=== PATIENT | male | born 1965 | race Caucasian/White ===

== ENCOUNTER → 2019-09-08 | Outpatient (CLI) | payer MEDICARE ==
--- NOTE | 2019-09-08 14:40 | REP ---
Clinical: Chest pain . Comparison: None . Technique: PA and lateral. Findings: The mediastinum and cardiac silhouette are normal. The lung ruvalcaba are clear and without acute consolidation, effusion, or pneumothorax. Small focus of linear plate-like atelectasis / scarring along the periphery of the left mid lung zone. The skeletal structures are intact and normal. Impression: 1. No significant acute process. Electronically Signed by Patrice Saavedra MD 09/08/2019 02:31 P
== END ==
LOC: M WUC 14:17
PROVIDERS: ATTEND Internal Medicine
DX: R07.89 Other chest pain (principal)

== ENCOUNTER 2020-06-22 14:18 | Emergency (ER) | payer MEDICARE, OTHER ==
[~2020-06-22] VITALS: Ht 175.3 cm; Wt 145.9 kg
[2020-06-22] MEDS ORDERED: FLUO20CA22 (14:31)
[2020-06-22] MEDS ORDERED: OMEP-221 (14:31)
[2020-06-22] MEDS ORDERED: LAMO50TA (14:31)
[2020-06-22] MEDS ORDERED: METO1TAB32 (14:31)
[2020-06-22] MEDS ORDERED: METF10004 (14:31)
[2020-06-22] MEDS ORDERED: LEVO25TA5 (14:31)
[2020-06-22] MEDS ORDERED: TRAZ1TAB14 (14:31)
[2020-06-22] MEDS ORDERED: ATOM40CA9 (14:31)
[2020-06-22] MEDS ORDERED: FENO160T10 (14:31)
[2020-06-22] MEDS ORDERED: MONT10TA4 (14:31)
[2020-06-22] MEDS ORDERED: AMLO1TAB25 (14:31)
[2020-06-22] MEDS ORDERED: SIMV20TA22 (14:31)
[2020-06-22] MEDS ORDERED: COLE625TAB (14:31)
[2020-06-22] MEDS ORDERED: GLIP5TAB20 (14:31)
[2020-06-22] MEDS ORDERED: DESV50TA3 (14:31)
[2020-06-22] MEDS ORDERED: ALBU8.5H (14:31)
[2020-06-22] MEDS ORDERED: ONDANSETRON 4MG/2ML VIAL IV ONE ×2 (15:30→18:00)
[2020-06-22] MEDS ORDERED: KETOROLAC 30 MG/ML 1ML VIAL IV ONE (15:30)
[2020-06-22] MEDS ORDERED: NS 1,000 ML IV ONE (15:30)
[2020-06-22 15:36] LABS: BASO % 0.4 % (0.0-1.0); EOS % 0.4 % (0.0-3.0); HEMATOCRIT 48.7 % (42.0-52.0); HEMOGLOBIN 15.7 g/dl (13.5-17.5); LYMPH # 1.2 10^3/uL (1.5-5.0); LYMPH % 10.8 % (24.0-44.0); MEAN CORPUSCULAR HEMOGLOBIN 26.9 pg (27.0-33.0); MEAN CORPUSCULAR HGB CONC 32.2 g/dl (32.0-36.5); MEAN CORPUSCULAR VOLUME 83.5 fl (80.0-96.0); MONO # 0.7 10^3/uL (0.0-0.8); MONO % 6.5 % (0.0-5.0); NEUTROPHILS % 81.5 % (36.0-66.0); PLATELET COUNT, AUTOMATED 219 10^3/uL (150-450); RED BLOOD COUNT 5.83 10^6/uL (4.30-6.10)
[2020-06-22] MEDS ORDERED: ISOVUE-370 76% 100ML VIAL As Ordered ONE (15:51)
[2020-06-22 16:09] LABS: ALBUMIN 4.1 GM/DL (3.2-5.2); ALT/SGPT 97 U/L (12-78); BILIRUBIN,DIRECT 0.2 MG/DL (0.0-0.2); BILIRUBIN,TOTAL 0.5 MG/DL (0.2-1.0); CK-MB VALUE MASS 1.3 NG/ML (<3.6); CPK CREATINE PHOSPHOKINASE 204 U/L (39-308); LIPASE 157 U/L (73-393); MB/CK RELATIVE INDEX 0.64 (< OR =4); TOTAL PROTEIN 8.3 GM/DL (6.4-8.2); TROPONIN I < 0.02 NG/ML (< 0.10)
--- NOTE | 2020-06-22 16:53 | REPVR ---
PROCEDURE INFORMATION: Exam: CT Abdomen And Pelvis With Contrast Exam date and time: 06/22/2020 4:09 PM Age: 55 years old Clinical indication: Abdominal pain; Localized; Left lower quadrant (llq); Additional info: Llq abd pain TECHNIQUE: Imaging protocol: Computed tomography of the abdomen and pelvis with intravenous contrast. Radiation optimization: All CT scans at this facility use at least one of these dose optimization techniques: automated exposure control; mA and/or kV adjustment per patient size (includes targeted exams where dose is matched to clinical indication); or iterative reconstruction. Contrast material: ISOVUE 370; Contrast volume: 100 ml; Contrast route: INTRAVENOUS (IV); COMPARISON: No relevant prior studies available. FINDINGS: Liver: Moderate diffuse fatty infiltration of the liver is present. There are hypodense masses present in the right lobe of the liver, with the largest measuring 6.2 cm in maximum craniocaudal diameter on image 85 of series 202. These have benign features with well-defined aguilar and internal homogeneous low attenuation density of less than 20 Hounsfield units and are likely small simple cysts or hemangiomas. Gallbladder and bile ducts: Prior cholecystectomy. The biliary ducts are normal in size. Pancreas: Normal. No ductal dilation. Spleen: Normal. No splenomegaly. Adrenals: Normal. No mass. Kidneys and ureters: Normal. No hydronephrosis. Stomach and bowel: No obvious cause for the patient's left lower quadrant pain identified. Minimal distal descending and proximal sigmoid colonic diverticulosis is present, with no evidence of acute diverticulitis. Appendix: No evidence of appendicitis. Intraperitoneal space: Unremarkable. No free air. No significant fluid collection. Vasculature: Unremarkable. No abdominal aortic aneurysm. Lymph nodes: Unremarkable. No enlarged lymph nodes. Bladder: Unremarkable as visualized. Reproductive: Unremarkable as visualized. Bones/joints: A chronic-appearing anterior wedge compression fracture of the superior vertebral body endplate of T11 is present, with anterior height loss of approximately 40%. This causes accentuation of the normal thoracolumbar spine kyphotic curvature. Soft tissues: Post laparotomy surgical changes are seen in the anterior abdominal wall. IMPRESSION: 1. Moderate diffuse fatty infiltration of the liver is present. 2. There are hypodense masses present in the right lobe of the liver, with the largest measuring 6.2 cm in maximum craniocaudal diameter on image 85 of series 202. These have benign features with well-defined aguilar and internal homogeneous low attenuation density of less than 20 Hounsfield units and are likely small simple cysts or hemangiomas. No further follow-up is recommended. Reference: Managing Incidental Findings on Abdominal CT: White Paper of the ACR Incidental Findings Committee Alex Lindquist MD, et al. JACR, July 2010. 3. Prior cholecystectomy. The biliary ducts are normal in size. 4. Post laparotomy surgical changes are seen in the anterior abdominal wall. 5. No obvious cause for the patient's left lower quadrant pain identified. Minimal distal descending and proximal sigmoid colonic diverticulosis is present, with no evidence of acute diverticulitis. 6. A chronic-appearing anterior wedge compression fracture of the superior vertebral body endplate of T11 is present, with anterior height loss of approximately 40%. This causes accentuation of the normal thoracolumbar spine kyphotic curvature. Electronically signed by: Ricky Recio On 06/22/2020 16:53:33 PM
[2020-06-22] MEDS ORDERED: MORPHINE 4 MG/ML 1ML VIAL/SYRINGE (J2270) IV ONE (18:00)
[2020-06-22] MEDS ORDERED: CLOTCRE3 TOP (19:40)
[2020-06-22 19:46] VITALS: BP 125/95
--- NOTE | 2020-06-24 08:52 | ED PDOC ---
Post-Departure Follow-Up certified letter sent regarding radiology Pam Zabala MD Jun 24, 2020 08:52
[2020-06-24 17:07] LABS: Lyme Disease IgG/IgM Antibodie <0.91 ISR (0.00-0.90); Lyme Disease IgM Ab Quantitati <0.80 index (0.00-0.79)
--- NOTE | 2020-06-25 11:20 | ECGEPIP ---
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
== END 2020-06-22 20:16 | disposition home or self-care (01) ==
LOC: M ED 14:18
DX: R74.0 Nonspecific elevation of levels of transaminase and lactic acid dehydrogenase [LDH] (principal); R19.7 Diarrhea, unspecified; R11.0 Nausea; S22.080A Wedge compression fracture of T11-T12 vertebra, initial encounter for closed fracture; X58.XXXA Exposure to other specified factors, initial encounter; Y92.9 Unspecified place or not applicable; Y99.9 Unspecified external cause status; R94.31 Abnormal electrocardiogram [ECG] [EKG]; R81 Glycosuria; E11.65 Type 2 diabetes mellitus with hyperglycemia; K76.0 Fatty (change of) liver, not elsewhere classified; K76.89 Other specified diseases of liver; R21 Rash and other nonspecific skin eruption; I10 Essential (primary) hypertension; E78.5 Hyperlipidemia, unspecified; J45.909 Unspecified asthma, uncomplicated; G47.30 Sleep apnea, unspecified; E03.9 Hypothyroidism, unspecified; F33.9 Major depressive disorder, recurrent, unspecified; F41.9 Anxiety disorder, unspecified; F17.290 Nicotine dependence, other tobacco product, uncomplicated; Z79.51 Long term (current) use of inhaled steroids; Z79.899 Other long term (current) drug therapy
CPT/HCPCS: 36415; 74177; 80047; 80076; 81001; 82550; 82553; 83605; 83690; 84484; 85025; 86617; 87040; 93005; 96361; 96374; 96375; 96376; 99284; J1885; J2270; J2405; Q9967

== ENCOUNTER → 2020-09-26 | Outpatient (CLI) | payer OTHER ==
[~2020-09-26] MED LIST: ALBU8.5H; AMLO1TAB25; ATOM40CA9; CLOTCRE3 TOP; COLE625TAB; DESV50TA3; FENO160T10; FLUO20CA22; GLIP5TAB20; LAMO50TA; LEVO25TA5; METF10004; METO1TAB32; MONT5TAB2; OMEP-221; SIMV20TA22; TRAZ1TAB14
--- NOTE | 2020-09-26 16:11 | REP ---
INDICATION: UNSP LUMP RT BREAST. COMPARISON: Mammogram right breast 09/06/2020. TECHNIQUE: Real-time sonographic evaluation of right breast performed. FINDINGS: In the retroareolar region of the right breast there is hypoechoic somewhat ill-defined tissue which measures 1.7 x 0.7 x 2.5 cm. This corresponds to the finding of ill-defined right retroareolar tissue on the mammogram. The mammogram also shows apparent skin thickening in the periareolar region. IMPRESSION: BIRADS/ACR 3 probably benign. Ill-defined tissue mammographically and sonographically in the right retroareolar region may represent gynecomastia. Mastitis could also cause this appearance. Inflammatory carcinoma could conceivably have this appearance. RECOMMENDATION: Clinical correlation is necessary. If there is clinical suspicion for inflammatory breast carcinoma, surgical consultation is recommended for biopsy. <Electronically signed by Chandra Richmond > 09/26/20 [id number]
== END ==
LOC: M RAD 15:25
PROVIDERS: ATTEND Physician Assistant Medical
DX: D48.61 Neoplasm of uncertain behavior of right breast (principal)

== ENCOUNTER → 2020-09-27 | Outpatient (CLI) | payer OTHER ==
[2020-09-27 17:05] VITALS: BP 132/76
--- NOTE | 2020-09-27 17:08 | REP ---
INDICATION: N63.10/N64.59/R BREAST MASS/THICKENING OF SKIN/CK CLIP PLACE. COMPARISON: 09/06/2020. TECHNIQUE: ML and CC views right breast performed following ultrasound-guided biopsy of the right retroareolar region. FINDINGS: Biopsy clip is seen in the right retroareolar region within ill-defined area of increased density. IMPRESSION: Placement of biopsy clip in the right retroareolar region status post ultrasound-guided biopsy. RECOMMENDATION: Clinical follow-up. <Electronically signed by Chandra Richmond > 09/27/20 [id number]
--- NOTE | 2020-09-27 17:21 | REP ---
INDICATION: N63.10/N64.59 US GUIDED BX/R BREAST MASS/THICKENING OF SKIN. COMPARISON: 09/26/2020. TECHNIQUE: Real-time sonographic evaluation of right breast performed. FINDINGS: Ultrasound guidance was provided for Dr. Toth who performed ultrasound-guided biopsy of right retroareolar tissue. IMPRESSION: Ultrasound guidance provided for Dr. Toth for ultrasound-guided biopsy of the right retroareolar region. RECOMMENDATION: Clinical follow-up. <Electronically signed by Chandra Richmond > 09/27/20 [id number]
--- NOTE | 2020-10-06 17:00 | ROOPDOC ---
[facility] Report Of Operation Report of Operation DATE OF PROCEDURE: 09/27/20 DIAGNOSIS: right edema and right breast retroareolar suspicious lesion PROCEDURE: punch biopsy of right breast and right areola, Ultrasound guided biopsy of right breast suspicious lesion with clip placement SURGEON: Daniel Khan BLOOD LOSS: minimal COMPLICATIONS: none Lidocaine 1% LOT [id number] Expiration 01/2024 Sodium Bicarbonate 8.4% LOT [id number] Expiration 07/2021 Hydromark clip LOT [id number] Expiration 05/2023 SHAPE 3 Bx device: BARD [id number] x10 cm LOT [id number] Expiration 05/2023 RIGHT BREAST PUNCH: 3 mm RIGHT AREOLAR PUNCH : 4 mm Informed consent was obtained. The most common risk and possible complications including bleeding, hematoma, bruising, infection, injury to surrounding structures were explained to the patient and the patient expressed understanding. Patient was placed on the bed in the supine position. Appropriate time out was done stating patients name, date of , and the procedure to be performed. The right breast was prepped and draped in the usual fashion. Procedure was started with punch biopsy of the areola. Plain Lidocaine 1% and 8.4% sodium bicarbonate 10:1 mix was used to anesthetize the areolar skin at the site of edema located at 12:00. 4 mm punch biopsy device was used to collect the sample going through entire dermis. The specimen was placed in formaldehyde, labeled with right areolar punch biopsy and patients name, and sent to pa thology for evaluation. Adequate hemostasis was achieved. The skin defect was approximated with 4-0 Chromic interrupted suture. Next, my attention was shifted toward the right lateral breast at 10:00 area which also demonstrated tissue edema. Plain Lidocaine 1% and 8.4% sodium bicarbonate 10:1 mix was used to anesthetize the right breast skin at the site of edema located at 10:00. 3mm punch biopsy device was used to collect two adjacent samples going through entire dermis. The specimens were placed in f ormaldehyde, labeled with right lateral breast punch biopsy and patients name, and sent to pathology for evaluation. Adequate hemostasis was achieved. The skin defect was approximated with 4-0 Chromic interrupted suture. At this time, right breast was re-prepped and re-drapped prior to US guided procedure. The ultrasound was used to confirm the location of the ill-defined so nographic lesion in the right retroareolar area. Plain Lidocaine 1% and 8.4% sodium bicarbonate 10:1 mix was used to anesthetize the skin, the biopsy site and tissues along the anticipated biopsy tract. Small skin incision was made with blade number 11. BARD Marquee 14G cannula with introducer ([id number]) was inserted through the incision and advanced under the ultrasound guidance to position immediately adjacent to the lesion. Next, the introducer was removed and BARD Marquee 14G biopsy device was places in the cannula. Pre-biopsy imaging, and post-biopsy imaging were captured. Five good core biopsies were taken at various levels of the lesion. Specimen was placed in formaldehyde, labeled with appropriate biopsy site and patients name, and sent to pathology for evaluation. Next, the biopsy device was withdrawn and a clip introducer was inserted into the biopsy site via the cannula. The SHAPE 3 Hydromark clip was deployed under sonographic guidance. Post-clip placement image was captured. Manual pressure over the biopsy cavity and tract was held after the clip introducer was withdrawn. No bleeding was noted upon removal of the pressure. Post-biopsy mammogram of the right breast was obtained and showed clip in expected position. Postprocedural dressing was placed. Patient tolerated procedure well. Discharge instructions were discussed with the patient and the patient expressed understanding. DANIEL KHAN DO Oct 06, 2020 17:00
== END ==
LOC: M WHCPRO 13:54
PROVIDERS: ATTEND Surgery
DX: N63.21 Unspecified lump in the left breast, upper outer quadrant (principal)

== ENCOUNTER → 2020-09-28 | Outpatient (CLI) | payer OTHER ==
--- NOTE | 2020-09-28 13:25 | REP ---
INDICATION: RIGHT BREAST NODULE; 2ND READ OF OUTSIDE MAMMO. COMPARISON: None. TECHNIQUE: Right breast mammography performed at [facility] in the MLO and CC projections with tomosynthesis submitted for 2nd interpretation. FINDINGS: There is skin thickening in the periareolar region. There is ill-defined density in the retroareolar breast. A 6 mm ill-defined density is seen in the inferolateral right breast. No clustered microcalcifications are seen. IMPRESSION: ACR 3 probably benign mammogram right breast. Skin thickening in the periareolar region with ill-defined density in the retroareolar region. Findings may represent mastitis and or gynecomastia. The patient should be clinically evaluated for inflammatory breast carcinoma. With regard to the 6 mm ill-defined density in the inferolateral right breast more posteriorly, this appears to represent a small island of fibroglandular tissue rather than a true nodule. Recommend six-month follow-up mammogram of the right breast to ensure stability. <Electronically signed by Chandra Richmond > 09/28/20 [id number]
== END ==
LOC: M RAD 09:10
PROVIDERS: ATTEND Surgery
DX: N63.10 Unspecified lump in the right breast, unspecified quadrant (principal)

== ENCOUNTER → 2020-10-03 | Outpatient (REF) | payer OTHER ==
[2020-10-03 17:50] LABS: HEMOGLOBIN A1c 7.2 %
[2020-10-03 18:05] LABS: ALBUMIN 4.1 GM/DL (3.2-5.2); ALT/SGPT 58 U/L (12-78); BILIRUBIN,TOTAL 0.4 MG/DL (0.2-1.0); BLOOD UREA NITROGEN 20 MG/DL (7-18); CALCIUM LEVEL 10.2 MG/DL (8.5-10.1); CARBON DIOXIDE LEVEL 31 MEQ/L (21-32); CHLORIDE LEVEL 100 MEQ/L (98-107); CREATININE FOR GFR 1.22 MG/DL (0.70-1.30); GLOMERULAR FILTRATION RATE > 60.0 (>56); GLUCOSE, FASTING 132 MG/DL (70-100); LUTEINIZING HORMONE 3.2 mIU/mL (1.5-9.3); POTASSIUM SERUM 4.1 MEQ/L (3.5-5.1); SODIUM LEVEL 137 MEQ/L (136-145); TOTAL PROTEIN 7.7 GM/DL (6.4-8.2)
[2020-10-03 18:06] LABS: FOLLICLE STIMULATING HORMONE 7.8 mIU/mL (1.4-18.1)
== END ==
LOC: M PLALAB 14:15
PROVIDERS: ATTEND Surgery
DX: N62 Hypertrophy of breast (principal); E11.9 Type 2 diabetes mellitus without complications

== ENCOUNTER → 2020-10-27 | Outpatient (CLI) | payer MEDICARE ==
[~2020-10-27] MED LIST changes: +MONT10TA10; -MONT5TAB2
== END ==
LOC: M RAD 10:37
PROVIDERS: ATTEND Surgery
DX: R92.8 Other abnormal and inconclusive findings on diagnostic imaging of breast (principal); N62 Hypertrophy of breast; N64.89 Other specified disorders of breast; N64.4 Mastodynia; Z53.9 Procedure and treatment not carried out, unspecified reason

== ENCOUNTER → 2020-12-14 | Outpatient (CLI) | payer MEDICARE ==
--- NOTE | 2020-12-14 10:00 | REP ---
INDICATION: SHORTNESS OF BREATH COMPARISON: 09/08/2019 TECHNIQUE: PA and lateral. FINDINGS: The mediastinum and cardiac silhouette are normal. The lung ruvalcaba are clear and without acute consolidation, effusion, or pneumothorax. Chronic stable linear scarring in the left mid lung zone. The skeletal structures are intact and normal. IMPRESSION: No acute cardiopulmonary process. <Electronically signed by Patrice Saavedra > 12/14/20 [id number]
== END ==
LOC: M RAD 09:46
PROVIDERS: ATTEND Nurse Practitioner Adult Health
DX: R06.02 Shortness of breath (principal)

== ENCOUNTER → 2021-01-19 | Outpatient (REF) | payer MEDICARE ==
[2021-01-25 11:08] LABS: CALPROTECTIN STOOL 80 ug/g (0-120); FATS NEUTRAL Normal (.); FATS TOTAL Normal (.)
== END ==
LOC: M SFHCWAGY 15:04
PROVIDERS: ATTEND Internal Medicine Gastroenterology
DX: R19.7 Diarrhea, unspecified (principal)

== ENCOUNTER → 2021-03-09 | Outpatient (CLI) | payer MEDICARE ==
--- NOTE | 2021-03-09 12:41 | REP ---
INDICATION: R92.8 ABN R BREAST MAMMO/R BR THICKENING/NODULAR OPACITY. Pathology report indicates benign gynecomastia. COMPARISON: Multiple TECHNIQUE: Digital CC and MLO views of the right breast were obtained using both 2D and 3D modalities and compared to the prior exams. In addition, ultrasonography was obtained. FINDINGS: The right breast is unchanged in size and shape. There are no mookie soft tissue densities or spiculated masses. There is no internal architectural distortion. There is a surgical biopsy clip in place which is unchanged in position from the prior exam 09/27/2020. Diagnostic ultrasonography of the region of interest shows a small amount of fluid surrounding a surgical biopsy clip. There are no masses. IMPRESSION: BIRADS/ACR category 2 negative mammogram. This mammogram was interpreted with the aid of an FDA-approved computer-aided detection system. The patient states she had a clinical breast exam in September 2020. The patient letter being requested is M1. RECOMMENDATION: As clinically appropriate. <Electronically signed by Rayray Aguilera > 03/09/21 0152
== END ==
LOC: M WHC 10:52
PROVIDERS: ATTEND Surgery
DX: R92.8 Other abnormal and inconclusive findings on diagnostic imaging of breast (principal)
CPT/HCPCS: 76642; 77065; G0279

== ENCOUNTER 2021-10-23 15:19 | Inpatient (IN) | payer MEDICARE ==
[~2021-10-23] VITALS: Ht 177.8 cm; Wt 137.1 kg
[~2021-10-23 15:19] MED LIST changes: -AMLO1TAB25; +AMLO1TAB25 PO; -FENO160T10; +FENO160T10 PO; -METF10004; +METF10004 PO; -METO1TAB32; +METO1TAB32 PO; -MONT10TA10; +MONT10TA97; -OMEP-221; +OMEP40CA5 PO; -SIMV20TA22; +SIMV20TA22 PO
[2021-10-23] MEDS ORDERED: INSULIN IV RATE CHANGE DOCUMENTATION ML/HR XX SCH (17:10)
[2021-10-23] MEDS ORDERED: NS 1,000 ML IV ONE (17:10)
[2021-10-23 18:26] LABS: VENOUS BASE EXCESS -1.1 (-2.0-2.0); VENOUS HCO3 22.9 MEQ/L (23.0-27.0); VENOUS O2 SATURATION 96.7 % (60.0-80.0); VENOUS PARTIAL PRESSURE CO2 36.4 mmHg (38.0-50.0); VENOUS PARTIAL PRESSURE O2 82.9 mmHg (30.0-50.0); VENOUS PH 7.416 UNITS (7.330-7.430); VENOUS STANDARD HCO3 23.5 MEQ/L
[2021-10-23 18:32] LABS: BASO % 0.6 % (0.0-1.0); EOS # 0.1 10^3/uL (0.0-0.5); EOS % 1.4 % (0.0-3.0); HEMATOCRIT 46.1 % (42.0-52.0); HEMOGLOBIN 15.2 g/dl (13.5-17.5); LYMPH # 1.6 10^3/uL (1.5-5.0); LYMPH % 31.3 % (24.0-44.0); MEAN CORPUSCULAR HEMOGLOBIN 27.3 pg (27.0-33.0); MEAN CORPUSCULAR VOLUME 82.8 fl (80.0-96.0); MONO # 0.3 10^3/uL (0.0-0.8); MONO % 5.8 % (2.0-8.0); NEUTROPHILS % 60.5 % (36.0-66.0); PLATELET COUNT, AUTOMATED 176 10^3/uL (150-450); RED BLOOD COUNT 5.57 10^6/uL (4.30-6.10)
[2021-10-23] MEDS: INSULIN REGULAR IN 0.9 % NACL 100 UNIT in IV 1 EA IV SCH ×2 (18:35)
[2021-10-23 18:48] LABS: OSMOLALITY SERUM 314 MOSM/KG (275-295)
[2021-10-23 18:50] LABS: HEMOGLOBIN A1c 11.8 %
[2021-10-23 18:54] LABS: ACETONE/KETONE 7.46 MG/DL (<2.81); ALBUMIN 3.6 GM/DL (3.2-5.2); ALT/SGPT 57 U/L (12-78); BILIRUBIN,DIRECT 0.1 MG/DL (0.0-0.2); BILIRUBIN,TOTAL 0.3 MG/DL (0.2-1.0); BLOOD UREA NITROGEN 30 MG/DL (7-18); CALCIUM LEVEL 10.4 MG/DL (8.5-10.1); CARBON DIOXIDE LEVEL 27 MEQ/L (21-32); CHLORIDE LEVEL 99 MEQ/L (98-107); CREATININE FOR GFR 1.04 MG/DL (0.70-1.30); GLOMERULAR FILTRATION RATE > 60.0 (>56); GLUCOSE, FASTING 460 MG/DL (70-100); LIPASE 222 U/L (73-393); SODIUM LEVEL 134 MEQ/L (136-145); TOTAL PROTEIN 7.7 GM/DL (6.4-8.2)
[2021-10-23] MEDS ORDERED: VASC1CAP2 PO (20:41)
[2021-10-23] MEDS ORDERED: VENL150C43 PO (20:41)
[2021-10-23] MEDS ORDERED: BETA0.0543 TOP (20:41)
[2021-10-23] MEDS ORDERED: GABA-282 PO (20:41)
[2021-10-23] MEDS ORDERED: LEVO50TA5 PO (20:41)
[2021-10-23] MEDS ORDERED: PRAZ1CAP PO (20:41)
[2021-10-23] MEDS ORDERED: SEMA3TAB PO (20:41)
[2021-10-23] MEDS ORDERED: GLIP5TAB8 PO (20:41)
[2021-10-23] MEDS ORDERED: LEVEMIR (INSULIN DETEMIR) 1 UNITS/0.01ML SC SCH (21:00)
[2021-10-23] MEDS ORDERED: HumaLOG INSULIN (NovoLOG) PER UNIT SC SCH (21:00)
[2021-10-23] MEDS ORDERED: PRAZOSIN 1 MG CAP PO SCH (21:00)
[2021-10-23] MEDS: GABAPENTIN 300 MG CAP PO SCH (21:00)
[2021-10-23] MEDS ORDERED: MOM 30ML SUSPENSION UDC PO PRN (21:20)
[2021-10-23] MEDS ORDERED: GLUCOSE 4GM CHEW TABLET PO PRN (21:20)
[2021-10-23] MEDS ORDERED: GLUCAGON INJ 1MG VIAL SC PRN (21:20)
[2021-10-23] MEDS ORDERED: DEXTROSE 50% 50 ML SYRINGE IV PRN (21:20)
[2021-10-23] MEDS ORDERED: ACETAMINOPHEN TAB 650MG DOSE (2X325MG) PO PRN (21:20)
[2021-10-23] MEDS ORDERED: CETI10TA4 PO (21:23)
[2021-10-23] MEDS ORDERED: ACET25TA12 PO (21:23)
[2021-10-23] MEDS ORDERED: MONT10TA97 PO (21:23)
[2021-10-23] MEDS ORDERED: LOMO2.5T PO (21:23)
[2021-10-23] MEDS ORDERED: PROAAER10 INH (21:23)
[2021-10-23] MEDS ORDERED: ERGO500029 PO (21:23)
[2021-10-23] MEDS ORDERED: BREO1INH3 INH (21:23)
[2021-10-23] MEDS ORDERED: RA B1TAB2 PO (21:23)
[2021-10-23] MEDS ORDERED: HOME MED LIST COMPLETE! XX SCH (21:25)
[2021-10-23] MEDS: NS 1,000 ML IV SCH (21:35)
[2021-10-23] MEDS ORDERED: ANEXSIA, NORCO 7.5MG/325MG TABLET(HYDROCODONE/APAP) PO PRN (21:40)
[2021-10-23] MEDS ORDERED: ALBUTEROL 90 MCG/ACT 8GM HFA INHALER INH PRN (22:00)
[2021-10-24 00:06] LABS: BLOOD UREA NITROGEN 26 MG/DL (7-18); CALCIUM LEVEL 9.9 MG/DL (8.5-10.1); CARBON DIOXIDE LEVEL 27 MEQ/L (21-32); CHLORIDE LEVEL 105 MEQ/L (98-107); CREATININE FOR GFR 0.93 MG/DL (0.70-1.30); GLOMERULAR FILTRATION RATE > 60.0 (>56); GLUCOSE, FASTING 235 MG/DL (70-100); POTASSIUM SERUM 4.2 MEQ/L (3.5-5.1); SODIUM LEVEL 139 MEQ/L (136-145)
[2021-10-24] MEDS: INSULIN REGULAR IN 0.9 % NACL 100 UNIT in IV 1 EA IV SCH ×2 (00:19)
[2021-10-24] MEDS ORDERED: MORPHINE 4 MG/ML 1ML VIAL/SYRINGE (J2270) IV ONE (01:10)
[2021-10-24 03:40] VITALS: BP 142/96
[2021-10-24] MEDS: NS 1,000 ML IV SCH (03:43)
[2021-10-24 04:49] LABS: ALBUMIN 3.4 GM/DL (3.2-5.2); ALT/SGPT 52 U/L (12-78); BILIRUBIN,TOTAL 0.3 MG/DL (0.2-1.0); BLOOD UREA NITROGEN 24 MG/DL (7-18); CALCIUM LEVEL 9.3 MG/DL (8.5-10.1); CARBON DIOXIDE LEVEL 27 MEQ/L (21-32); CHLORIDE LEVEL 102 MEQ/L (98-107); CREATININE FOR GFR 0.96 MG/DL (0.70-1.30); GLOMERULAR FILTRATION RATE > 60.0 (>56); GLUCOSE, FASTING 288 MG/DL (70-100); MAGNESIUM LEVEL 1.9 MG/DL (1.8-2.4); POTASSIUM SERUM 4.3 MEQ/L (3.5-5.1); SODIUM LEVEL 135 MEQ/L (136-145)
[2021-10-24] MEDS ORDERED: LEVOTHYROXINE 50MCG TABLET (0.05MG) PO SCH (06:00)
[2021-10-24] MEDS ORDERED: ACETAMINOPHEN 500 MG TAB PO ONE (07:40)
[2021-10-24] MEDS ORDERED: FIORICET TAB PO ONE (07:40)
[2021-10-24] MEDS ORDERED: KETOROLAC 30 MG/ML 1ML VIAL IV ONE (07:40)
[2021-10-24] MEDS: HumaLOG INSULIN (NovoLOG) PER UNIT SC SCH ×2 (07:44→12:27)
[2021-10-24 07:45] VITALS: BP 180/98
[2021-10-24] MEDS ORDERED: LEVE1INJ5 SC (07:49)
[2021-10-24] MEDS ORDERED: LISI10TA22 PO ×2 (07:49→11:56)
[2021-10-24] MEDS ORDERED: ALCO1MED31 TP (07:50)
[2021-10-24] MEDS ORDERED: METOPROLOL TART 50 MG TAB PO ONE (07:50)
[2021-10-24] MEDS ORDERED: LOPR1TAB6 PO (07:51)
[2021-10-24] MEDS ORDERED: SELF1KIT MC (07:53)
[2021-10-24] MEDS ORDERED: METOPROLOL SUCC (TopROL XL) 50MG **XL** TAB PO ONE (08:10)
[2021-10-24] MEDS ORDERED: OMEPRAZOLE 20 MG CAP PO SCH (09:00)
[2021-10-24] MEDS ORDERED: ENOXAPARIN 40MG/0.4ML SYRINGE (J1650 PER 10MG) SC SCH (09:00)
[2021-10-24] MEDS ORDERED: MONTELUKAST 10 MG TAB PO SCH (09:00)
[2021-10-24] MEDS ORDERED: VENLAFAXINE **XR** 75MG CAPSULE PO SCH (09:00)
[2021-10-24] MEDS ORDERED: METOPROLOL SUCC *XL* 25MG TAB (TopROL *XL*) PO SCH (09:00)
[2021-10-24] MEDS ORDERED: SIMVASTATIN 20 MG TAB PO SCH (09:00)
[2021-10-24] MEDS ORDERED: DOCUSATE SODIUM 100MG CAPSULE PO SCH (09:00)
[2021-10-24] MEDS: GABAPENTIN 300 MG CAP PO SCH (09:07)
[2021-10-24 10:48] VITALS: BP 170/95
[2021-10-24 11:52] VITALS: BP 143/86
[2021-10-24 12:27] VITALS: BP 143/86
[2021-10-24] MEDS ORDERED: [UNRECOGNIZED DRUG - CODE] XX (12:56)
[2021-10-24] MEDS ORDERED: BLOO-76 MC (12:56)
[2021-10-24] MEDS ORDERED: LANC1COM MC ×2 (12:56→13:29)
[2021-10-24] MEDS ORDERED: PHAR1TES VI (13:28)
[2021-10-24] MEDS ORDERED: ADVOMIS XX (13:34)
[2021-10-25] MEDS ORDERED: METOPROLOL SUCC (TopROL XL) 50MG **XL** TAB PO SCH (09:00)
== END 2021-10-24 15:03 | disposition home or self-care (01) | DRG 638 ==
LOC: M ED 15:19 → EDBD 15:19 → M ED INP 21:18 → M PCU 10-24 03:33
PROVIDERS: ADMIT Family Medicine; ATTEND General Practice
DX: E11.65 Type 2 diabetes mellitus with hyperglycemia (principal); Z68.41 Body mass index [BMI] 40.0-44.9, adult; I10 Essential (primary) hypertension; E03.9 Hypothyroidism, unspecified; J45.909 Unspecified asthma, uncomplicated; G89.29 Other chronic pain; E66.9 Obesity, unspecified; I16.0 Hypertensive urgency; Z79.899 Other long term (current) drug therapy; M54.2 Cervicalgia

== ENCOUNTER → 2022-01-31 | Outpatient (REF) | payer MEDICARE ==
[~2022-01-31] MED LIST changes: +ACET25TA12 PO; +ADVOMIS XX; +ALCO1MED31 TP; +BETA0.0543 TOP; +BLOO-76 MC; +BREO1INH3 INH; +CETI10TA4 PO; +ERGO500029 PO; +GABA-282 PO; +GLIP5TAB8 PO; +LANC1COM MC; +LEVE1INJ5 SC; +LEVO50TA5 PO; +LISI10TA22 PO; +LOMO2.5T PO; +LOPR1TAB6 PO; +MONT10TA97 PO; +PHAR1TES VI; +PRAZ1CAP PO; +PROAAER10 INH; +RA B1TAB2 PO; +SELF1KIT MC; +SEMA3TAB4 PO; +VASC1CAP2 PO; +VENL150C43 PO; +[UNRECOGNIZED DRUG - CODE] XX
== END ==
LOC: M LAB REF 14:24
PROVIDERS: ATTEND Internal Medicine Gastroenterology
DX: Z12.11 Encounter for screening for malignant neoplasm of colon (principal)

== ENCOUNTER → 2022-02-14 | Outpatient (CLI) | payer MEDICARE | LOC: M LABSMTC 09:41 | PROVIDERS: ATTEND Anesthesiology | DX: Z01.818 Encounter for other preprocedural examination (principal); Z11.52 Encounter for screening for COVID-19 ==

== ENCOUNTER 2022-02-19 12:28 | Day surgery (SDC) | payer MEDICARE ==
[~2022-02-19] VITALS: Ht 177.8 cm; Wt 130.2 kg
[~2022-02-19 12:28] MED LIST changes: +NS 1,000 ML IV ONE
[2022-02-19] MEDS ORDERED: LIDOCAINE 2% 100MG/5ML SDV (FOR ANES.) As Ordered ONE (13:19)
[2022-02-19] MEDS ORDERED: propofoL 200 MG/20 ML VIAL As Ordered ONE ×2 (13:19→14:07)
[2022-02-19 14:35] VITALS: BP 138/82
== END 2022-02-19 14:41 | disposition home or self-care (01) ==
LOC: M OPP 12:28
PROVIDERS: ATTEND Internal Medicine Gastroenterology
DX: R19.7 Diarrhea, unspecified (principal); Z79.02 Long term (current) use of antithrombotics/antiplatelets; Z79.84 Long term (current) use of oral hypoglycemic drugs; Z79.899 Other long term (current) drug therapy; Z88.5 Allergy status to narcotic agent; F17.290 Nicotine dependence, other tobacco product, uncomplicated

== ENCOUNTER → 2022-12-14 | Outpatient (CLI) | payer MEDICARE, MEDICAID ==
[~2022-12-14] MED LIST changes: +COLE625T17; -COLE625TAB; +INSU100I6 SC; -LEVE1INJ5 SC; -NS 1,000 ML IV ONE
== END ==
LOC: M PLARAD 12:31
PROVIDERS: ATTEND Pain Medicine Interventional Pain Medicine
DX: M54.12 Radiculopathy, cervical region (principal)

== ENCOUNTER → 2023-09-26 | Outpatient (CLI) | payer MEDICAID, MEDICARE ==
[~2023-09-26] MED LIST changes: +ALBU6.7H6 INH; +ATOR1TAB21 PO; +DULO1CAP6 PO; +GASTROGRAFIN SOLUTION 30ML As Ordered ONE; +GLIP10TA6 PO; +GLIP5TAB17 PO; -GLIP5TAB8 PO; +INSU100I48 SQ; +ISOVUE-370 76% 100ML VIAL As Ordered ONE; +LOPI600T PO; +SEMA2PEN SQ; +TRAZ1TAB14 PO
== END ==
LOC: M RAD 08:22
PROVIDERS: ATTEND Internal Medicine Medical Oncology
DX: D49.512 Neoplasm of unspecified behavior of left kidney (principal); K76.89 Other specified diseases of liver
CPT/HCPCS: 74177; Q9963; Q9967

== ENCOUNTER → 2023-10-25 | Outpatient (REF) | payer MEDICARE ==
[~2023-10-25] MED LIST changes: -GASTROGRAFIN SOLUTION 30ML As Ordered ONE; -ISOVUE-370 76% 100ML VIAL As Ordered ONE
[2023-10-25 18:27] LABS: APPEARANCE, URINE HAZY (CLEAR); BACTERIA, URINE AUTO NEGATIVE (NEGATIVE); BILIRUBIN, URINE AUTO NEGATIVE (NEGATIVE); BLOOD, URINE BLOOD NEGATIVE (NEGATIVE); COLOR, URINE YELLOW (YELLOW); GLUCOSE, URINE (UA) AUTO 3+ mg/dL (NEGATIVE); KETONE, URINE AUTO NEGATIVE (NEGATIVE); LEUKOCYTE ESTERASE, URINE AUTO NEGATIVE (NEGATIVE); MUCUS, URINE SMALL (NEGATIVE); NITRITE, URINE AUTO NEGATIVE (NEGATIVE); PROTEIN, URINE AUTO NEGATIVE (NEGATIVE); RBC, URINE AUTO 1 /HPF (0-3); SPECIFIC GRAVITY URINE AUTO 1.031 (1.002-1.035); SQUAMOUS EPITHELIAL CELL UR AU 0 /HPF (0-6); UROBILINOGEN, URINE AUTO 0.2 mg/dL (0.0-2.0); WBC, URINE AUTO 1 /HPF (0-3)
== END ==
LOC: M SMT 17:07
PROVIDERS: ATTEND Urology
DX: N28.89 Other specified disorders of kidney and ureter (principal)

== ENCOUNTER → 2023-11-01 | Outpatient (CLI) | payer MEDICAID, MEDICARE ==
[~2023-11-01] MED LIST changes: +ISOVUE-370 76% 100ML VIAL ONE
== END ==
LOC: M PLAIMG 13:36
PROVIDERS: ATTEND Urology
DX: N28.89 Other specified disorders of kidney and ureter (principal)
CPT/HCPCS: 71260; Q9967

== ENCOUNTER → 2023-12-03 | Outpatient (REF) | payer MEDICARE, MEDICAID ==
[~2023-12-03] MED LIST changes: -ISOVUE-370 76% 100ML VIAL ONE; +LISI30TA4 PO; +ONDA8TAB8 PO
[2023-12-03 15:42] LABS: HEMOGLOBIN A1c 6.8 % (4.0-6.0)
== END ==
LOC: M LAB REF 14:30
PROVIDERS: ATTEND Nurse Practitioner Family
DX: E11.65 Type 2 diabetes mellitus with hyperglycemia (principal)

== ENCOUNTER → 2023-12-03 | Outpatient (REF) | payer MEDICARE, MEDICAID ==
[2023-12-03 15:15] LABS: BASO % 0.5 % (0.0-1.0); EOS # 0.1 10^3/uL (0.0-0.5); EOS % 1.2 % (0.0-3.0); HEMATOCRIT 52.5 % (42.0-52.0); HEMOGLOBIN 16.6 g/dl (13.5-17.5); LYMPH # 1.9 10^3/uL (1.5-5.0); LYMPH % 29.7 % (24.0-44.0); MEAN CORPUSCULAR HEMOGLOBIN 26.1 pg (27.0-33.0); MEAN CORPUSCULAR HGB CONC 31.6 g/dl (32.0-36.5); MEAN CORPUSCULAR VOLUME 82.4 fl (80.0-96.0); MONO # 0.5 10^3/uL (0.0-0.8); MONO % 7.1 % (2.0-8.0); NEUTROPHILS % 61.2 % (36.0-66.0); PLATELET COUNT, AUTOMATED 197 10^3/uL (150-450); RED BLOOD COUNT 6.37 10^6/uL (4.30-6.10); WHITE BLOOD COUNT 6.5 10^3/uL (4.0-10.0)
[2023-12-03 15:24] LABS: ERYTHROCYTE SEDIMENTATION RATE 45 mm/hr (0-20)
[2023-12-03 15:34] LABS: URIC ACID 3.1 MG/DL (3.7-9.2)
[2023-12-03 15:35] LABS: C REACTIVE PROTEIN QUANTITATIV < 0.40 MG/DL (<1.0)
[2023-12-03 15:37] LABS: ALBUMIN 3.3 G/DL (3.2-5.2); ALKALINE PHOSPHATASE 131 U/L (46-116); ALT/SGPT 36 U/L (7.0-40); AST/SGOT 21 U/L (<34); BILIRUBIN,TOTAL 0.4 MG/DL (0.3-1.2); BLOOD UREA NITROGEN 25 MG/DL (9-23); CALCIUM LEVEL 9.2 MG/DL (8.5-10.1); CARBON DIOXIDE LEVEL 30 MMOL/L (20-31); CHLORIDE LEVEL 102 MMOL/L (98-107); CREATININE FOR GFR 0.99 MG/DL (0.70-1.30); GLOMERULAR FILTRATION RATE > 60.0 (>56); GLUCOSE, FASTING 137 MG/DL (60-100); POTASSIUM SERUM 4.1 MMOL/L (3.5-5.1); SODIUM LEVEL 137 MMOL/L (136-145); TOTAL PROTEIN 6.8 G/DL (5.7-8.2)
[2023-12-03 17:05] LABS: RHEUMATOID FACTOR QUANT < 3.5 IU/ML (<14)
== END ==
LOC: M LAB REF 14:24
PROVIDERS: ATTEND Registered Nurse
DX: M13.0 Polyarthritis, unspecified (principal)

== ENCOUNTER 2023-12-25 06:19 | Inpatient (IN) | payer MEDICAID, MEDICARE ==
[~2023-12-25] VITALS: Ht 177.8 cm; Wt 140.4 kg
[2023-12-25] VITALS (9 sets, daily range): BP systolic 128–156; BP diastolic 86–95; TEMP 97.2–97.9; O2SAT 92–95
[~2023-12-25 06:19] MED LIST changes: +AMBI5TAB PO; +BENA25CA4 PO; +JARD1TAB3 PO; +LANTINJ4 SC; +MM S100C PO; -ONDA8TAB8 PO; +ONDA8TAB8 SL; +PIOG1TAB36 PO
[2023-12-25] MEDS: LR 1,000 ML IV SCH ×2 (07:10→12:02)
[2023-12-25] MEDS ORDERED: MIDAZOLAM INJ 2MG/2ML VIAL As Ordered ONE (07:18)
[2023-12-25] MEDS ORDERED: LIDOCAINE 2% 100MG/5ML SDV (FOR ANES.) As Ordered ONE (07:18)
[2023-12-25] MEDS ORDERED: fentaNYL 100 MCG/2 ML INJECTION As Ordered ONE (07:18)
[2023-12-25] MEDS ORDERED: ONDANSETRON 4MG 2ML VIAL As Ordered ONE (07:18)
[2023-12-25] MEDS ORDERED: propofoL 200 MG/20 ML VIAL As Ordered ONE (07:18)
[2023-12-25] MEDS ORDERED: ROCURONIUM BROMIDE 50MG/5ML VIAL As Ordered ONE (07:18)
[2023-12-25] MEDS ORDERED: INSULIN LISPRO (NovoLOG) PER UNIT SC PRN ×2 (07:25→11:50)
[2023-12-25] MEDS ORDERED: ACETAMINOPHEN TAB 650MG DOSE (2X325MG) PO PRN (07:45)
[2023-12-25] MEDS ORDERED: PERCOCET 5MG/325MG TAB PO PRN (07:45)
[2023-12-25] MEDS ORDERED: ONDANSETRON 4MG 2ML VIAL IV PRN ×2 (07:45→11:30)
[2023-12-25] MEDS: ceFAZolin SOD 1 GM in D5W MINI-BAG PLUS 50 ML IV ONE (07:49)
[2023-12-25] MEDS: ceFAZolin SOD 2 GM in IV 1 EA IV ONE (07:49)
[2023-12-25] MEDS ORDERED: METO50TA7 PO (07:54)
[2023-12-25] MEDS ORDERED: GABA600T4 PO (07:54)
[2023-12-25] MEDS ORDERED: HOME MED LIST COMPLETE! XX SCH (07:55)
[2023-12-25] MEDS ORDERED: GLUCAGON INJ 1MG VIAL SC PRN ×2 (08:00→11:50)
[2023-12-25] MEDS ORDERED: GLUCOSE 4GM CHEW TABLET PO PRN ×2 (08:00→11:50)
[2023-12-25] MEDS ORDERED: DEXTROSE 50% 50ML SYRINGE IV PRN ×2 (08:00→11:50)
[2023-12-25] MEDS ORDERED: PHENYLEPHRINE 10MG/ML 1ML VIAL As Ordered ONE (08:35)
[2023-12-25] MEDS ORDERED: VASOPRESSIN INJ 20UNITS/ML 1ML VIAL As Ordered ONE (08:45)
[2023-12-25] MEDS: DOCUSATE SODIUM 100MG CAPSULE PO SCH (09:00)
[2023-12-25] MEDS ORDERED: ACETAMINOPHEN 1000MG 100ML IV BAG As Ordered ONE (09:24)
[2023-12-25] MEDS: MANNITOL 25% 12.5GM 50ML VIAL As Ordered ONE (10:40)
[2023-12-25] MEDS ORDERED: SUGAMMADEX SODIUM 500 MG/5 ML VIAL (BRIDION) As Ordered ONE (10:53)
[2023-12-25] MEDS: LIDOCAINE 1% SDV 30ML VIAL As Ordered ONE (11:30)
[2023-12-25] MEDS ORDERED: fentaNYL 100 MCG/2 ML INJECTION IV PRN (11:30)
[2023-12-25] MEDS ORDERED: KETOROLAC 60MG 2ML VIAL As Ordered ONE (11:31)
[2023-12-25] MEDS: INSULIN LISPRO (NovoLOG) PER UNIT SC SCH ×2 (11:56→21:00)
[2023-12-25] MEDS: oxyCODONE 5MG TAB PO PRN (11:57)
[2023-12-25] MEDS: HYDROMORPHONE HCL 0.5 MG/ 0.5 ML SYRINGE IV PRN (12:02)
[2023-12-25] MEDS: NS 1,000 ML IV SCH (12:15)
[2023-12-25 12:40] LABS: HEMATOCRIT 48.6 % (42.0-52.0); HEMOGLOBIN 15.3 g/dl (13.5-17.5); MEAN CORPUSCULAR HEMOGLOBIN 25.9 pg (27.0-33.0); MEAN CORPUSCULAR HGB CONC 31.5 g/dl (32.0-36.5); MEAN CORPUSCULAR VOLUME 82.4 fl (80.0-96.0); PLATELET COUNT, AUTOMATED 179 10^3/uL (150-450); WHITE BLOOD COUNT 12.6 10^3/uL (4.0-10.0)
[2023-12-25] MEDS: LEVOTHYROXINE 50MCG TABLET (0.05MG) PO SCH (13:00)
[2023-12-25 13:15] LABS: BLOOD UREA NITROGEN 30 MG/DL (9-23); CALCIUM LEVEL 8.9 MG/DL (8.5-10.1); CARBON DIOXIDE LEVEL 27 MMOL/L (20-31); CHLORIDE LEVEL 103 MMOL/L (98-107); CREATININE FOR GFR 1.07 MG/DL (0.70-1.30); GLOMERULAR FILTRATION RATE > 60.0 (>56); GLUCOSE, FASTING 242 MG/DL (60-100); POTASSIUM SERUM 4.3 MMOL/L (3.5-5.1); SODIUM LEVEL 136 MMOL/L (136-145)
[2023-12-25] MEDS: SIMETHICONE 80MG CHEW TAB PO PRN (14:11)
[2023-12-25] MEDS: ceFAZolin SOD 1 GM in D5W MINI-BAG PLUS 50 ML IV SCH (16:30)
[2023-12-25] MEDS: PERCOCET 5MG/325MG TAB PO PRN (16:31)
[2023-12-25] MEDS: OMEPRAZOLE 20MG CAP PO SCH (20:45)
[2023-12-25] MEDS: ATORVASTATIN 20 MG TAB PO SCH (20:45)
[2023-12-25] MEDS: DULoxetine 30MG CAPSULE (CYMBALTA) PO SCH (20:45)
[2023-12-25] MEDS: METOPROLOL TART 50 MG TAB PO SCH (20:48)
[2023-12-25] MEDS: MONTELUKAST 10 MG TAB PO SCH (20:48)
[2023-12-25] MEDS: traZODone 50 MG TAB PO SCH (20:48)
[2023-12-26 01:44] VITALS: BP 138/94; TEMP 97.5; O2SAT 91
[2023-12-26 06:19] VITALS: BP 119/81; TEMP 97.7; O2SAT 92
[2023-12-26 07:24] LABS: HEMATOCRIT 42.3 % (42.0-52.0); HEMOGLOBIN 13.4 g/dl (13.5-17.5); MEAN CORPUSCULAR HEMOGLOBIN 25.5 pg (27.0-33.0); MEAN CORPUSCULAR HGB CONC 31.7 g/dl (32.0-36.5); MEAN CORPUSCULAR VOLUME 80.6 fl (80.0-96.0); PLATELET COUNT, AUTOMATED 174 10^3/uL (150-450); RED BLOOD COUNT 5.25 10^6/uL (4.30-6.10); WHITE BLOOD COUNT 9.9 10^3/uL (4.0-10.0)
[2023-12-26 07:48] LABS: BLOOD UREA NITROGEN 27 MG/DL (9-23); CALCIUM LEVEL 8.7 MG/DL (8.5-10.1); CARBON DIOXIDE LEVEL 28 MMOL/L (20-31); CHLORIDE LEVEL 104 MMOL/L (98-107); CREATININE FOR GFR 0.95 MG/DL (0.70-1.30); GLOMERULAR FILTRATION RATE > 60.0 (>56); GLUCOSE, FASTING 157 MG/DL (60-100); POTASSIUM SERUM 4.5 MMOL/L (3.5-5.1); SODIUM LEVEL 137 MMOL/L (136-145)
[2023-12-26] MEDS: CETIRIZINE (ZyrTEC) 10 MG TAB PO SCH (08:01)
[2023-12-26 11:00] VITALS: BP 139/91; TEMP 97.5; O2SAT 92
[2023-12-26] MEDS ORDERED: PERCOCET PO (12:36)
[2023-12-26 14:26] VITALS: BP 139/94; TEMP 97.7; O2SAT 92
== END 2023-12-26 16:15 | disposition home or self-care (01) | DRG 657 ==
LOC: M OR 06:19 → M MS5PR 12:45
PROVIDERS: ADMIT Urology; ATTEND Urology
PROC: 8E0W4CZ Robotic Assisted Procedure of Trunk Region, Percutaneous Endoscopic Approach (ICD-10-PCS; 2023-12-25)
PROC: 0TB14ZZ Excision of Left Kidney, Percutaneous Endoscopic Approach (ICD-10-PCS; principal; 2023-12-25 07:30)
DX: C64.2 Malignant neoplasm of left kidney, except renal pelvis (principal); Z68.41 Body mass index [BMI] 40.0-44.9, adult; K21.9 Gastro-esophageal reflux disease without esophagitis; E11.9 Type 2 diabetes mellitus without complications; F32.9 Major depressive disorder, single episode, unspecified; E03.9 Hypothyroidism, unspecified; E78.00 Pure hypercholesterolemia, unspecified; E66.01 Morbid (severe) obesity due to excess calories; D75.1 Secondary polycythemia; Z90.49 Acquired absence of other specified parts of digestive tract; Z79.84 Long term (current) use of oral hypoglycemic drugs; Z79.890 Hormone replacement therapy; Z79.899 Other long term (current) drug therapy; Z87.891 Personal history of nicotine dependence

== ENCOUNTER → 2024-01-15 | Outpatient (REF) | payer MEDICARE ==
[~2024-01-15] MED LIST changes: +GABA600T4 PO; +METO50TA7 PO; +PERCOCET PO
== END ==
LOC: M LAB REF 12:38
PROVIDERS: ATTEND Internal Medicine Endocrinology, Diabetes & Metabolism
DX: E55.9 Vitamin D deficiency, unspecified (principal)

== ENCOUNTER 2024-05-09 14:32 | Observation (INO) | payer MEDICARE ==
[~2024-05-09] VITALS: Ht 177.8 cm; Wt 152.2 kg
[~2024-05-09 14:32] MED LIST changes: +FLUO-365; -FLUO20CA22; +NEUR600T PO; +ONDA-284 SL; -ONDA8TAB8 SL
[2024-05-09] MEDS: PERCOCET 5MG/325MG TAB PO ONE (16:52)
[2024-05-09] MEDS ORDERED: ROLLMIS8 XX (17:50)
[2024-05-09] MEDS ORDERED: TIRZ5PEN SC (18:23)
[2024-05-09] MEDS ORDERED: ALBU8.5H INH (18:23)
[2024-05-09] MEDS ORDERED: HOME MED LIST COMPLETE! XX SCH (18:25)
[2024-05-09] MEDS ORDERED: MOM 30ML SUSPENSION UDC PO PRN (19:05)
[2024-05-09] MEDS ORDERED: MAALOX 30 ML SUSP *UDC PO PRN (19:05)
[2024-05-09] MEDS ORDERED: GLUCOSE 4 GM CHEW PO PRN (19:05)
[2024-05-09] MEDS ORDERED: GLUCAGON INJ 1MG VIAL SC PRN (19:05)
[2024-05-09] MEDS ORDERED: ALBUTEROL 90 MCG/ACT 8GM HFA INHALER INH PRN (19:05)
[2024-05-09] MEDS ORDERED: PERCOCET 5MG/325MG TAB PO PRN (19:05)
[2024-05-09] MEDS ORDERED: DEXTROSE 50% 50ML SYRINGE IV PRN (19:05)
[2024-05-09] MEDS ORDERED: ACETAMINOPHEN TAB 650MG DOSE (2X325MG) PO PRN (19:05)
[2024-05-09 19:13] LABS: BASO # 0.1 10^3/uL (0.0-0.2); BASO % 0.6 % (0.0-1.0); EOS # 0.1 10^3/uL (0.0-0.5); EOS % 1.3 % (0.0-3.0); HEMATOCRIT 53.7 % (42.0-52.0); HEMOGLOBIN 16.8 g/dl (13.5-17.5); LYMPH # 2.2 10^3/uL (1.5-5.0); LYMPH % 26.5 % (24.0-44.0); MEAN CORPUSCULAR HEMOGLOBIN 24.7 pg (27.0-33.0); MEAN CORPUSCULAR HGB CONC 31.3 g/dl (32.0-36.5); MEAN CORPUSCULAR VOLUME 78.9 fl (80.0-96.0); MONO # 0.6 10^3/uL (0.0-0.8); MONO % 7.1 % (2.0-8.0); NEUTROPHILS # 5.3 10^3/uL (1.5-8.5); NEUTROPHILS % 64.3 % (36.0-66.0); PLATELET COUNT, AUTOMATED 189 10^3/uL (150-450); RED BLOOD COUNT 6.81 10^6/uL (4.30-6.10); WHITE BLOOD COUNT 8.3 10^3/uL (4.0-10.0)
[2024-05-09 19:35] LABS: ALBUMIN 3.7 G/DL (3.2-5.2); ALKALINE PHOSPHATASE 132 U/L (46-116); ALT/SGPT 27 U/L (7.0-40); AST/SGOT 36 U/L (<34); BILIRUBIN,TOTAL 0.4 MG/DL (0.3-1.2); BLOOD UREA NITROGEN 17 MG/DL (9-23); CALCIUM LEVEL 9.4 MG/DL (8.5-10.1); CARBON DIOXIDE LEVEL 29 MMOL/L (20-31); CHLORIDE LEVEL 104 MMOL/L (98-107); CREATININE FOR GFR 0.98 MG/DL (0.70-1.30); GLOMERULAR FILTRATION RATE > 60.0 (>56); GLUCOSE, FASTING 83 MG/DL (60-100); POTASSIUM SERUM 5.3 MMOL/L (3.5-5.1); SODIUM LEVEL 136 MMOL/L (136-145); TOTAL PROTEIN 7.5 G/DL (5.7-8.2)
[2024-05-09 19:42] LABS: THYROID STIMULATING HORMONE 3.606 uIU/ML (0.55-4.78)
[2024-05-09 19:43] LABS: FREE T4 0.92 NG/DL (0.89-1.76)
[2024-05-09] MEDS: INSULIN LISPRO (NovoLOG) PER UNIT SC SCH (21:00)
[2024-05-09] MEDS: LEVEMIR (INSULIN DETEMIR) 1 UNITS/0.01ML SC SCH (21:36)
[2024-05-09] MEDS: traZODone 50 MG TAB PO SCH (21:37)
[2024-05-09] MEDS: ATORVASTATIN 20 MG TAB PO SCH (21:37)
[2024-05-09] MEDS: DOCUSATE SODIUM 100MG CAPSULE PO SCH (21:37)
[2024-05-09] MEDS: METOPROLOL TART 50 MG TAB PO SCH (21:40)
[2024-05-09] MEDS: OMEPRAZOLE 20MG CAP PO SCH (21:41)
[2024-05-09] MEDS: GABAPENTIN 300 MG CAP PO SCH (21:41)
[2024-05-09] MEDS: MONTELUKAST 10 MG TAB PO SCH (21:42)
[2024-05-09] MEDS: PERCOCET 5MG/325MG TAB PO PRN (21:43)
[2024-05-10 03:45] VITALS: BP 123/80; TEMP 97.9; O2SAT 96
[2024-05-10 07:04] LABS: HEMATOCRIT 49.1 % (42.0-52.0); HEMOGLOBIN 15.4 g/dl (13.5-17.5); MEAN CORPUSCULAR HGB CONC 31.4 g/dl (32.0-36.5); MEAN CORPUSCULAR VOLUME 79.7 fl (80.0-96.0); PLATELET COUNT, AUTOMATED 176 10^3/uL (150-450); RED BLOOD COUNT 6.16 10^6/uL (4.30-6.10); WHITE BLOOD COUNT 7.4 10^3/uL (4.0-10.0)
[2024-05-10 07:43] LABS: ALBUMIN 3.2 G/DL (3.2-5.2); ALKALINE PHOSPHATASE 119 U/L (46-116); ALT/SGPT 20 U/L (7.0-40); AST/SGOT 19 U/L (<34); BILIRUBIN,TOTAL 0.4 MG/DL (0.3-1.2); BLOOD UREA NITROGEN 21 MG/DL (9-23); CALCIUM LEVEL 9.4 MG/DL (8.5-10.1); CARBON DIOXIDE LEVEL 29 MMOL/L (20-31); CHLORIDE LEVEL 104 MMOL/L (98-107); CREATININE FOR GFR 1.16 MG/DL (0.70-1.30); GLOMERULAR FILTRATION RATE > 60.0 (>56); GLUCOSE, FASTING 146 MG/DL (60-100); POTASSIUM SERUM 4.2 MMOL/L (3.5-5.1); SODIUM LEVEL 139 MMOL/L (136-145); TOTAL PROTEIN 6.5 G/DL (5.7-8.2)
[2024-05-10] MEDS: ENOXAPARIN 40MG/0.4ML SYRINGE (J1650 PER 10MG) SC SCH (08:14)
[2024-05-10] MEDS: CETIRIZINE (ZyrTEC) 10 MG TAB PO SCH (08:15)
[2024-05-10] MEDS: INSULIN LISPRO (NovoLOG) PER UNIT SC SCH (08:15)
[2024-05-10] MEDS: IBUPROFEN 800 MG TAB PO PRN (08:15)
[2024-05-10] MEDS: PERCOCET 5MG/325MG TAB PO PRN (10:03)
[2024-05-10 12:01] VITALS: BP 128/84; TEMP 97.3; O2SAT 98
[2024-05-10 19:26] VITALS: TEMP 97.2; O2SAT 96
[2024-05-10 20:39] VITALS: BP 157/89
[2024-05-11 03:41] VITALS: BP_SYST 152; BP_DIAS 83; BP_DIAS 87; TEMP 97.2; O2SAT 98
[2024-05-11 12:00] VITALS: BP 148/87; TEMP 97.3; O2SAT 94
[2024-05-11] MEDS ORDERED: PERCOCET PO (15:07)
== END 2024-05-11 16:45 | disposition home or self-care (01) ==
LOC: M ED 14:32 → M ED INP 19:04 → M MS5PR 05-10 03:42
PROVIDERS: ADMIT Family Medicine; ATTEND Internal Medicine Nephrology
DX: S82.432A Displaced oblique fracture of shaft of left fibula, initial encounter for closed fracture (principal); W10.8XXA Fall (on) (from) other stairs and steps, initial encounter; Y92.008 Other place in unspecified non-institutional (private) residence as the place of occurrence of the external cause; Y93.9 Activity, unspecified; Y99.9 Unspecified external cause status; E11.40 Type 2 diabetes mellitus with diabetic neuropathy, unspecified; E66.9 Obesity, unspecified; K21.9 Gastro-esophageal reflux disease without esophagitis; E03.9 Hypothyroidism, unspecified; E78.5 Hyperlipidemia, unspecified; K44.9 Diaphragmatic hernia without obstruction or gangrene; C64.9 Malignant neoplasm of unspecified kidney, except renal pelvis; D75.0 Familial erythrocytosis; J45.909 Unspecified asthma, uncomplicated; G47.33 Obstructive sleep apnea (adult) (pediatric); F41.9 Anxiety disorder, unspecified; F32.A Depression, unspecified; F17.218 Nicotine dependence, cigarettes, with other nicotine-induced disorders; Z79.84 Long term (current) use of oral hypoglycemic drugs; Z79.899 Other long term (current) drug therapy; Z79.4 Long term (current) use of insulin; Z88.8 Allergy status to other drugs, medicaments and biological substances
CPT/HCPCS: 29515; 36415; 73590; 73600; 73610; 80053; 83735; 84439; 84443; 85025; 85027; 96372; 97116; 97161; 97530; 99284; G0378; J1650; J1815

== ENCOUNTER → 2024-05-14 | Outpatient (CLI) | payer MEDICARE ==
[~2024-05-14] MED LIST changes: +ACET-1349 PO; +ALBU8.5H INH; +IBUP-1416 PO; +ROLLMIS8 XX; +TIRZ5PEN SC
[2024-05-14 17:44] LABS: BASO % 0.5 % (0.0-1.0); EOS # 0.1 10^3/uL (0.0-0.5); EOS % 1.4 % (0.0-3.0); HEMATOCRIT 50.5 % (42.0-52.0); HEMOGLOBIN 15.4 g/dl (13.5-17.5); LYMPH # 1.2 10^3/uL (1.5-5.0); LYMPH % 15.7 % (24.0-44.0); MEAN CORPUSCULAR HEMOGLOBIN 24.5 pg (27.0-33.0); MEAN CORPUSCULAR HGB CONC 30.5 g/dl (32.0-36.5); MEAN CORPUSCULAR VOLUME 80.3 fl (80.0-96.0); MONO # 0.5 10^3/uL (0.0-0.8); MONO % 6.5 % (2.0-8.0); NEUTROPHILS # 5.8 10^3/uL (1.5-8.5); NEUTROPHILS % 75.6 % (36.0-66.0); PLATELET COUNT, AUTOMATED 189 10^3/uL (150-450); RED BLOOD COUNT 6.29 10^6/uL (4.30-6.10); WHITE BLOOD COUNT 7.7 10^3/uL (4.0-10.0)
[2024-05-14 18:02] LABS: HEMOGLOBIN A1c 7.1 % (4.0-6.0)
[2024-05-14 18:49] LABS: ALBUMIN 3.5 G/DL (3.2-5.2); ALKALINE PHOSPHATASE 124 U/L (46-116); ALT/SGPT 53.99999 U/L (7.0-40); AST/SGOT 24 U/L (<34); BILIRUBIN,TOTAL 0.3 MG/DL (0.3-1.2); BLOOD UREA NITROGEN 20 MG/DL (9-23); CALCIUM LEVEL 9.7 MG/DL (8.5-10.1); CARBON DIOXIDE LEVEL 31 MMOL/L (20-31); CHLORIDE LEVEL 100 MMOL/L (98-107); CREATININE FOR GFR 1.05 MG/DL (0.70-1.30); GLOMERULAR FILTRATION RATE > 60.0 (>56); GLUCOSE, FASTING 160 MG/DL (60-100); POTASSIUM SERUM 4.9 MMOL/L (3.5-5.1); SODIUM LEVEL 135 MMOL/L (136-145); TOTAL PROTEIN 7.1 G/DL (5.7-8.2)
== END ==
LOC: M PLALAB 14:24
PROVIDERS: ATTEND Orthopaedic Surgery
DX: S82.62XA Displaced fracture of lateral malleolus of left fibula, initial encounter for closed fracture (principal); Y93.9 Activity, unspecified; Y92.9 Unspecified place or not applicable; Z79.899 Other long term (current) drug therapy

== ENCOUNTER 2024-05-19 09:09 | Day surgery (SDC) | payer MEDICARE ==
[~2024-05-19] VITALS: Ht 177.8 cm; Wt 149.7 kg
[2024-05-19] MEDS ORDERED: MIDAZOLAM INJ 2MG/2ML VIAL As Ordered ONE (09:53)
[2024-05-19] MEDS ORDERED: ACETAMINOPHEN 1000MG 100ML IV BAG As Ordered ONE (09:54)
[2024-05-19] MEDS ORDERED: LIDOCAINE 2% 100MG/5ML SDV (FOR ANES.) As Ordered ONE (09:54)
[2024-05-19] MEDS ORDERED: propofoL 200 MG/20 ML VIAL As Ordered ONE (09:54)
[2024-05-19] MEDS ORDERED: fentaNYL 100 MCG/2 ML INJECTION As Ordered ONE (09:54)
[2024-05-19] MEDS ORDERED: GLUCOSE 4 GM CHEW PO PRN (10:25)
[2024-05-19] MEDS ORDERED: GLUCAGON INJ 1MG VIAL SC PRN (10:25)
[2024-05-19] MEDS ORDERED: DEXTROSE 50% 50ML SYRINGE IV PRN (10:25)
[2024-05-19] MEDS: INSULIN LISPRO (NovoLOG) PER UNIT SC PRN (10:29)
[2024-05-19] MEDS: LR 1,000 ML IV SCH (10:30)
[2024-05-19] MEDS ORDERED: SUCCINYLCHOLINE 100MG/5ML SYRINGE As Ordered ONE (11:11)
[2024-05-19] MEDS ORDERED: ROCURONIUM BROMIDE 50MG/5ML VIAL As Ordered ONE (11:12)
[2024-05-19] MEDS: ceFAZolin 1GM VIAL As Ordered ONE (11:55)
[2024-05-19] MEDS: ceFAZolin SOD 2 GM in IV 1 EA IV ONE (11:55)
[2024-05-19] MEDS ORDERED: PHENYLephrine 500MCG 5ML (100MCG/ML) SYRINGE As Ordered ONE (12:30)
[2024-05-19] MEDS ORDERED: ONDANSETRON 4MG 2ML VIAL As Ordered ONE (12:45)
[2024-05-19] MEDS ORDERED: SUGAMMADEX SODIUM 500 MG/5 ML VIAL (BRIDION) As Ordered ONE (12:45)
[2024-05-19] MEDS ORDERED: ONDANSETRON 4MG 2ML VIAL IV PRN (13:05)
[2024-05-19] MEDS ORDERED: LR 1,000 ML IV SCH (13:05)
[2024-05-19] MEDS ORDERED: OXYC1TAB23 PO (13:15)
[2024-05-19] MEDS ORDERED: CEPH500C PO (13:15)
[2024-05-19] MEDS: fentaNYL 100 MCG/2 ML INJECTION IV PRN (13:26)
[2024-05-19] MEDS: HYDROMORPHONE HCL 0.5 MG/ 0.5 ML SYRINGE IV PRN ×2 (13:51)
[2024-05-19] MEDS: oxyCODONE 5MG TAB PO PRN (13:51)
[2024-05-19 14:55] VITALS: BP 125/95; TEMP 97.1; O2SAT 96
== END 2024-05-19 15:16 | disposition home or self-care (01) ==
LOC: M SDC 09:09
PROVIDERS: ATTEND Orthopaedic Surgery
DX: S82.432A Displaced oblique fracture of shaft of left fibula, initial encounter for closed fracture (principal); X58.XXXA Exposure to other specified factors, initial encounter; Y92.89 Other specified places as the place of occurrence of the external cause; Y93.9 Activity, unspecified; Y99.9 Unspecified external cause status; I10 Essential (primary) hypertension; E78.5 Hyperlipidemia, unspecified; E11.9 Type 2 diabetes mellitus without complications; G40.909 Epilepsy, unspecified, not intractable, without status epilepticus; K21.9 Gastro-esophageal reflux disease without esophagitis; K59.00 Constipation, unspecified; F41.9 Anxiety disorder, unspecified; F32.A Depression, unspecified; J45.909 Unspecified asthma, uncomplicated; Z79.51 Long term (current) use of inhaled steroids; Z79.4 Long term (current) use of insulin; Z79.84 Long term (current) use of oral hypoglycemic drugs; Z79.899 Other long term (current) drug therapy
CPT/HCPCS: 27792; 76000; C1713; J0131; J0330; J0665; J0690; J1170; J1815; J2250; J2371; J2405; J3010

== ENCOUNTER → 2024-06-01 | Outpatient (CLI) | payer MEDICARE ==
[~2024-06-01] MED LIST changes: +CEPH500C PO; +OXYC1TAB23 PO
== END ==
LOC: M SOG 07:57
PROVIDERS: ATTEND Orthopaedic Surgery
DX: Z47.89 Encounter for other orthopedic aftercare (principal)

== ENCOUNTER → 2024-07-01 | Outpatient (CLI) | payer MEDICARE ==
[~2024-07-01] MED LIST changes: +GABA-1490 PO; -GABA600T4 PO
== END ==
LOC: M SOG 07:26
PROVIDERS: ATTEND Orthopaedic Surgery
DX: S82.62XD Displaced fracture of lateral malleolus of left fibula, subsequent encounter for closed fracture with routine healing (principal)

== ENCOUNTER → 2024-07-10 | Outpatient (CLI) | payer MEDICARE ==
[~2024-07-10] MED LIST changes: +GABA-1172 PO; -GABA-282 PO; +GLIP10TA15 PO; -GLIP10TA6 PO
[2024-07-10 12:41] LABS: BASO % 0.5 % (0.0-1.0); EOS # 0.1 10^3/uL (0.0-0.5); EOS % 2.2 % (0.0-3.0); HEMOGLOBIN 16.1 g/dl (13.5-17.5); LYMPH # 1.6 10^3/uL (1.5-5.0); LYMPH % 27.8 % (24.0-44.0); MEAN CORPUSCULAR HEMOGLOBIN 25.4 pg (27.0-33.0); MEAN CORPUSCULAR VOLUME 81.9 fl (80.0-96.0); MONO # 0.4 10^3/uL (0.0-0.8); MONO % 6.8 % (2.0-8.0); NEUTROPHILS # 3.7 10^3/uL (1.5-8.5); NEUTROPHILS % 62.5 % (36.0-66.0); PLATELET COUNT, AUTOMATED 201 10^3/uL (150-450); RED BLOOD COUNT 6.35 10^6/uL (4.30-6.10); WHITE BLOOD COUNT 5.9 10^3/uL (4.0-10.0)
[2024-07-10 13:05] LABS: ALBUMIN 3.4 G/DL (3.2-5.2); ALKALINE PHOSPHATASE 125 U/L (46-116); ALT/SGPT 18 U/L (7.0-40); AST/SGOT 14 U/L (<34); BILIRUBIN,TOTAL 0.3 MG/DL (0.3-1.2); BLOOD UREA NITROGEN 23 MG/DL (9-23); CALCIUM LEVEL 10.1 MG/DL (8.5-10.1); CARBON DIOXIDE LEVEL 31 MMOL/L (20-31); CHLORIDE LEVEL 104 MMOL/L (98-107); CREATININE FOR GFR 1.03 MG/DL (0.70-1.30); GLOMERULAR FILTRATION RATE > 60.0 (>56); GLUCOSE, FASTING 189 MG/DL (60-100); POTASSIUM SERUM 4.5 MMOL/L (3.5-5.1); SODIUM LEVEL 138 MMOL/L (136-145); TOTAL PROTEIN 7.4 G/DL (5.7-8.2)
[2024-07-10 13:15] LABS: HEMOGLOBIN A1c 6.6 % (4.0-6.0)
== END ==
LOC: M LAB 12:04
PROVIDERS: ATTEND Orthopaedic Surgery
DX: S82.62XA Displaced fracture of lateral malleolus of left fibula, initial encounter for closed fracture (principal); Y93.9 Activity, unspecified; Y92.9 Unspecified place or not applicable; Z79.899 Other long term (current) drug therapy

== ENCOUNTER → 2024-07-13 | Outpatient (CLI) | payer MEDICARE ==
[~2024-07-13] MED LIST changes: +ISOVUE-370 76% 100ML VIAL As Ordered ONE
== END ==
LOC: M RAD 13:01
PROVIDERS: ATTEND Nurse Practitioner Family
DX: Z85.528 Personal history of other malignant neoplasm of kidney (principal)
CPT/HCPCS: 71046; 74170; Q9967

== ENCOUNTER → 2024-08-12 | Outpatient (CLI) | payer MEDICARE, MEDICAID ==
[~2024-08-12] MED LIST changes: -ISOVUE-370 76% 100ML VIAL As Ordered ONE
== END ==
LOC: M SOG 07:57
PROVIDERS: ATTEND Orthopaedic Surgery
DX: S82.62XD Displaced fracture of lateral malleolus of left fibula, subsequent encounter for closed fracture with routine healing (principal); Z53.9 Procedure and treatment not carried out, unspecified reason

== ENCOUNTER → 2024-08-28 | Outpatient (CLI) | payer MEDICARE, MEDICAID | LOC: M SOG 07:58 | PROVIDERS: ATTEND Orthopaedic Surgery | DX: S82.62XD Displaced fracture of lateral malleolus of left fibula, subsequent encounter for closed fracture with routine healing (principal); M77.32 Calcaneal spur, left foot ==

== ENCOUNTER → 2024-12-14 | Outpatient (CLI) | payer MEDICAID, MEDICARE, SELFPAY ==
[~2024-12-14] MED LIST changes: -AMBI5TAB PO; +GLIP-318; -GLIP5TAB20; +PREG100C2 PO; +ZOLP-532 PO
== END ==
LOC: M SLEEP HO 10:53
PROVIDERS: ATTEND Nurse Practitioner Adult Health
DX: G47.33 Obstructive sleep apnea (adult) (pediatric) (principal)

== ENCOUNTER → 2025-01-22 | Outpatient (CLI) | payer MEDICARE ==
[~2025-01-22] MED LIST changes: +AMBI5TAB PO; +ISOVUE-370 76% 100ML VIAL As Ordered ONE; -ZOLP-532 PO
== END ==
LOC: M RAD 12:57
PROVIDERS: ATTEND Nurse Practitioner Women's Health
DX: Z85.528 Personal history of other malignant neoplasm of kidney (principal); Z90.5 Acquired absence of kidney; K76.89 Other specified diseases of liver; K57.30 Diverticulosis of large intestine without perforation or abscess without bleeding
CPT/HCPCS: 74177; Q9967

== ENCOUNTER → 2025-02-22 | Outpatient (REF) | payer MEDICARE ==
[~2025-02-22] MED LIST changes: -AMBI5TAB PO; -ISOVUE-370 76% 100ML VIAL As Ordered ONE; +ZOLP-532 PO
[2025-02-22 15:18] LABS: URIC ACID 3.6 MG/DL (3.7-9.2)
[2025-02-22 15:21] LABS: ALBUMIN 3.5 G/DL (3.2-5.2); ALKALINE PHOSPHATASE 113 U/L (40-129); ALT/SGPT 32 U/L (7.0-40); AST/SGOT 23 U/L (<34); BILIRUBIN,TOTAL 0.3 MG/DL (0.3-1.2); BLOOD UREA NITROGEN 23 MG/DL (9-23); C REACTIVE PROTEIN QUANTITATIV < 0.50 MG/DL (<1.0); CALCIUM LEVEL 9.4 MG/DL (8.3-10.6); CARBON DIOXIDE LEVEL 31 MMOL/L (20-31); CHLORIDE LEVEL 100 MMOL/L (98-107); CHOLESTEROL LEVEL 152 MG/DL (<200); CHOLESTEROL RISK RATIO 4.91 (<5); CREATININE FOR GFR 1.03 MG/DL (0.70-1.30); GLOMERULAR FILTRATION RATE 83.2 (>49); GLUCOSE, FASTING 139 MG/DL (74-106); HDL CHOLESTEROL 30.9 MG/DL (>40); LDL CHOLESTEROL 78.5 MG/DL (<100); NON-HDL-C 121.1 MG/DL; POTASSIUM SERUM 4.5 MMOL/L (3.5-5.1); SODIUM LEVEL 138 MMOL/L (136-145); TOTAL PROTEIN 7.3 G/DL (5.7-8.2); TRIGLYCERIDES LEVEL 213 MG/DL (<150)
[2025-02-22 15:22] LABS: RHEUMATOID FACTOR QUANT < 3.5 IU/ML (<14)
[2025-02-22 15:23] LABS: FREE T4 1.03 NG/DL (0.89-1.76); THYROID STIMULATING HORMONE 5.108 uIU/ML (0.55-4.78); TOTAL 25(OH) VITAMIN D 34.2 NG/ML (20.0-100.0)
== END ==
LOC: M LAB REF 12:57
PROVIDERS: ATTEND Registered Nurse
DX: M13.0 Polyarthritis, unspecified (principal); E78.00 Pure hypercholesterolemia, unspecified; E55.9 Vitamin D deficiency, unspecified; E03.9 Hypothyroidism, unspecified; E11.65 Type 2 diabetes mellitus with hyperglycemia

== ENCOUNTER → 2025-05-04 | Outpatient (CLI) | payer MEDICARE ==
[~2025-05-04] MED LIST changes: +LIDOCAINE 1% MDV 20 ML VIAL SC SCH
[2025-05-04 12:05] VITALS: BP 139/89; TEMP 98.5; O2SAT 100
[2025-05-04 12:20] LABS: BASO # 0.0 10^3/uL (0.0-0.2); BASO % 0.7 % (0.0-1.0); EOS # 0.1 10^3/uL (0.0-0.5); EOS % 1.1 % (0.0-3.0); LYMPH # 1.7 10^3/uL (1.5-5.0); LYMPH % 27.3 % (24.0-44.0); MONO # 0.5 10^3/uL (0.0-0.8); MONO % 7.9 % (2.0-8.0); NEUTROPHILS # 3.8 10^3/uL (1.5-8.5); NEUTROPHILS % 62.7 % (36.0-66.0); PLATELET COUNT, AUTOMATED 176 10^3/uL (150-450)
== END ==
LOC: M IRPRO 11:43
PROVIDERS: ATTEND Internal Medicine Medical Oncology
DX: D75.1 Secondary polycythemia (principal)

== ENCOUNTER → 2025-05-18 | Outpatient (REF) | payer MEDICARE ==
[~2025-05-18] MED LIST changes: +AMLO1TAB24; -LIDOCAINE 1% MDV 20 ML VIAL SC SCH; +LISI30TA4; +NORT10CA2; +TIRZ10PE; +TOPI-256
== END ==
LOC: M LAB REF 15:57
PROVIDERS: ATTEND Registered Nurse
DX: R19.7 Diarrhea, unspecified (principal)